=== PATIENT | female | born 1990 | race Caucasian/White ===

== ENCOUNTER 2017-03-13 00:01 | Emergency (ER) | payer OTHER ==
[2017-03-13 00:09] VITALS: RESP 16
--- NOTE | 2017-03-13 01:11 | EDPHY ---
H & P Stated Complaint: SORE THROAT WITH FEVER WITH NAUSEA HPI/ROS: Chief Complaint: Sore throat, fever, nausea, malaise HPI: 26-year-old woman whose was in her normal state of health. This morning woke up with slight sore throat. This evening started developing worsening fatigue and malaise. Patient developed fever. She did take some ibuprofen earlier in the day but none in about 12 hours. No nausea or vomiting. No chest pain. No cough. Did feel little bit lightheaded but no syncope. No palpitations. ROS: 10 point Review of Systems is negative except as noted in the HPI. PMH: Denies Social History: No smoking, occasional alcohol, no recreational drug use Family History: non-contributory Physical Exam: Gen: Awake, Alert, No Distress HEENT: Nose: no rhinorrhea Eyes: PERRLA, EOMI Mouth: Moist mucosa Neck: Supple, no JVD Chest: nontender, lungs clear to auscultation Heart: S1, S2 normal, no murmur Abd: Soft, non-tender, no guarding Back: no CVA tenderness, no midline tenderness Ext: no edema, non-tender Skin: no rash Neuro: CN II-XII intact, Sensation grossly intact, Strength 5/5 in bilateral upper and lower extremities - Personal History LMP (Females 10-55): Now Current Tetanus/Diphtheria Vaccine: Yes Current Tetanus Diphtheria and Acellular Pertussis (TDAP): Yes - Medical/Surgical History Hx Asthma: No Hx Chronic Respiratory Disease: No Hx Diabetes: No Hx Cardiac Disease: No Hx Renal Disease: No Hx Cirrhosis: No Hx Alcoholism: No Hx HIV/AIDS: No Hx Splenectomy or Spleen Trauma: No - Social History Smoking Status: Never smoked Constitutional: Initial Vital Signs Temperature (C) 38.1 C 03/13/17 00:04 Heart Rate 92 03/13/17 00:04 Respiratory Rate 16 03/13/17 00:04 Blood Pressure 123/72 H 03/13/17 00:04 O2 Sat (%) 96 03/13/17 00:04 O2 Delivery Mode Room Air Allergies/Adverse Reactions: No Known Allergies Allergy (Unverified 03/13/17 00:09) Home Medications: Medication Instructions Recorded NK [No Known Home Meds] 03/13/17 Medical Decision Making ED Course/Re-evaluation: Patient is improved. She has defervesced. She is ambulating unassisted without any difficulties. Will discharge with follow up with as an outpatient, symptomatic treatment. No indications for antibiotics at this time. - Data Points Laboratory Results: 03/13/17 03/13/17 Unknown 00:38 Group A Strep Screen NEGATIVE (NEGATIVE) Group A Strep DNA Pending Medications Given: Discontinued Medications Acetaminophen (Tylenol) 1,000 mg PO EDNOW ONE Stop: 03/13/17 01:20 Last Admin: 03/13/17 01:20 Dose: 1,000 mg Departure - Departure Disposition: Home, Routine, Self-Care Clinical Impression: Viral upper respiratory infection Condition: Good Instructions: Upper Respiratory Infection (ED) Additional Instructions: Alternate acetaminophen (1000 mg) with ibuprofen (400 mg) every 4 hours as needed for fevers, chills, aches or pains. Follow up with primary care physician in 3-4 days if symptoms are not improving. Return to the emergency depart for increasing fevers or chills, pain, fainting, or any other concerns. Referrals: Charly Chowdary DO [Doctor of Osteopathy] - As per Instructions
[2017-03-13] MEDS ORDERED: ACETAMINOPHEN 160 MG/5 ML UDCUP PO ONE (01:15)
[2017-03-13] MEDS ORDERED: ACETAMINOPHEN 500 MG TAB ONE (01:18)
[2017-03-13] MEDS ORDERED: ACETAMINOPHEN 500 MG TAB PO ONE (01:19)
[2017-03-13 02:35] VITALS: BP 102/66; PULSE 80; TEMP 99; O2SAT 97
== END 2017-03-13 02:34 | disposition home or self-care (01) ==
DX: J06.9 Acute upper respiratory infection, unspecified (principal)